=== PATIENT | male | born 1940 | race Caucasian/White ===

== ENCOUNTER 2023-10-02 15:18 | Inpatient (IN) | payer OTHER ==
[~2023-10-02] VITALS: Ht 177.8 cm; Wt 55.8 kg
[~2023-10-02 15:18] MED LIST: AMBIEN; RESPIRADOL
[2023-10-02 15:29] VITALS: BP_SYST 136; PULSE 71; RESP 18; TEMP 97.7; O2SAT 98
[2023-10-02 17:00] LABS: BASOPHILS % (AUTO) 0.4 % (0.0-2.0); EOSINOPHILS # (AUTO) 0.1 K/uL (0.0-0.4); EOSINOPHILS % (AUTO) 1.1 % (0.0-4.0); HEMATOCRIT 37.3 % (36-54); HEMOGLOBIN 12.5 g/dL (14.0-18.0); LYMPHOCYTES # (AUTO) 1.5 K/uL (1.0-5.5); LYMPHOCYTES % (AUTO) 19.9 % (20.5-51.5); MEAN CORPUSCULAR HEMOGLOBIN 30 pg (27-31); MEAN CORPUSCULAR HGB CONC 34 % (32-36); MEAN CORPUSCULAR VOLUME 88 fL (79.0-98.0); MONOCYTES # (AUTO) 0.7 K/uL (0.0-1.0); NEUTROPHILS # (AUTO) 5.4 K/uL (1.8-7.7); NEUTROPHILS % (AUTO) 69.6 % (40.0-70.0); PLATELET COUNT (AUTO) 292 K/uL (130-430); RED BLOOD CELL COUNT(AUTO) 4.23 MIL/uL (4.2-6.2); WHITE BLOOD COUNT (AUTO) 7.8 K/uL (4.8-10.8)
[2023-10-02 17:29] LABS: ANION GAP 9 (5-15); CALCIUM 8.9 mg/dL (8.4-11.0); CARBON DIOXIDE 28 mmol/L (23-29); CHLORIDE 105 mmol/L (98-107); CREATININE 1.11 mg/dL (0.55-1.30); GLUCOSE 124 mg/dL (74-106); POTASSIUM 3.1 mmol/L (3.5-5.1); SODIUM SERUM 142 mmol/L (136-145); UREA NITROGEN, BLOOD 24 mg/dL (8-21)
[2023-10-02 17:41] LABS: ALANINE AMINOTRANSFERASE 27 U/L (12-78); ALBUMIN 3.6 g/dL (3.4-4.8); ASPARTATE AMINOTRANSFERASE 29 U/L (10-37); BILIRUBIN,DIRECT 0.2 mg/dL (0.0-0.3); CREATINE KINASE, TOTAL 315 U/L (39-308); FREE T4 (FREE THYROXINE) 0.9 ng/dL (0.6-1.6); THYROID STIMULATING HORMONE 2.83 uIu/mL (0.34-4.82); TOTAL BILIRUBIN 0.8 mg/dL (0.0-1.0); TOTAL PROTEIN, SERUM 7.4 g/dL (6.4-8.3)
[2023-10-02 17:52] LABS: PROTHROMBIN TIME 10.3 SECS (9.5-12.5)
[2023-10-02 18:07] LABS: CKMB RELATIVE INDEX 2.2 (0.0-2.9)
[2023-10-02 18:08] LABS: BILIRUBIN,URINE NEGATIVE (NEGATIVE); CLARITY/URINE CLEAR (CLEAR); COLOR,URINE YELLOW (YELLOW); GLUCOSE,URINE NEGATIVE (NEGATIVE); KETONES,URINE 1+ (NEGATIVE); LEUKOCYTE ESTERASE ,URINE NEGATIVE (NEGATIVE); NITRITE, URINE NEGATIVE (NEGATIVE); PROTEIN URINE TRACE (NEGATIVE)
[2023-10-02 18:14] LABS: BLOOD, URINE TRACE (NEGATIVE)
[2023-10-02 18:21] LABS: BACTERIA,URINE FEW /HPF (None Seen); FINE GRANULAR CASTS,URINE 0-10 /LPF (None Seen); MUCUS,URINE 2+ /LPF (None Seen); RBC,URINE 0-3 /HPF (0-3); WBC,URINE 0-3 /HPF (0-3)
[2023-10-02] MEDS ORDERED: BENA-6 PO (18:37)
[2023-10-02] MEDS ORDERED: SIMV-43 PO (18:37)
[2023-10-02] MEDS ORDERED: DONE5TAB33 PO (18:37)
[2023-10-02] MEDS ORDERED: ACETAMINOPHEN 325 MG TABLET PO PRN ×2 (19:15→19:30)
[2023-10-02] MEDS ORDERED: MORPHINE 2 MG/ML INJ. SYRINGE IVP PRN (19:15)
[2023-10-02] MEDS ORDERED: ONDANSETRON HCL 4 MG/2 ML VIAL IVP PRN (19:15)
[2023-10-02] MEDS ORDERED: HYDROcodone/ACETAMIN 5-325 MG TAB (NORCO/ VICODIN) PO PRN (19:15)
[2023-10-02] MEDS ORDERED: HYDROcodone/ACETAMIN 10-325 MG TAB PO PRN (19:15)
[2023-10-02] MEDS: NACL 0.9% 1,000 ML IV SCH (19:30)
[2023-10-02] MEDS ORDERED: BENAZEPRIL HCL 20 MG TABLET (LOTENSIN) PO SCH (19:30)
[2023-10-02] MEDS: POTASSIUM CHLORIDE 40 MEQ, LIDOCAINE JECT 2% PF 100 MG 50 MG in NS 250 ML IV ONE (21:16)
[2023-10-02] MEDS: lisinopriL 20 MG TABLET PO ONE (21:18)
[2023-10-02] MEDS: SIMVASTATIN 20 MG TABLET PO ONE (21:18)
[2023-10-02] MEDS: DONEPEZIL HCL 5 MG TABLET (ARICEPT) PO ONE (21:19)
[2023-10-03] MEDS ORDERED: MORPHINE 2 MG/ML INJ. SYRINGE ONE (00:41)
[2023-10-03 04:23] LABS: BASOPHILS % (AUTO) 0.2 % (0.0-2.0); EOSINOPHILS # (AUTO) 0.1 K/uL (0.0-0.4); EOSINOPHILS % (AUTO) 0.5 % (0.0-4.0); HEMATOCRIT 34.7 % (36-54); HEMOGLOBIN 11.7 g/dL (14.0-18.0); LYMPHOCYTES # (AUTO) 1.3 K/uL (1.0-5.5); LYMPHOCYTES % (AUTO) 12.5 % (20.5-51.5); MEAN CORPUSCULAR HEMOGLOBIN 30 pg (27-31); MEAN CORPUSCULAR HGB CONC 34 % (32-36); MEAN CORPUSCULAR VOLUME 89 fL (79.0-98.0); MONOCYTES # (AUTO) 0.8 K/uL (0.0-1.0); NEUTROPHILS # (AUTO) 7.9 K/uL (1.8-7.7); NEUTROPHILS % (AUTO) 78.8 % (40.0-70.0); PLATELET COUNT (AUTO) 272 K/uL (130-430); RED BLOOD CELL COUNT(AUTO) 3.91 MIL/uL (4.2-6.2); RED CELL DISTRIBUTION WIDTH 14.1 % (9.0-15.0); WHITE BLOOD COUNT (AUTO) 10.1 K/uL (4.8-10.8)
[2023-10-03 04:30] LABS: ALANINE AMINOTRANSFERASE 25 U/L (12-78); ALBUMIN 3.3 g/dL (3.4-4.8); ANION GAP 8 (5-15); ASPARTATE AMINOTRANSFERASE 26 U/L (10-37); CALCIUM 8.4 mg/dL (8.4-11.0); CARBON DIOXIDE 27 mmol/L (23-29); CHLORIDE 109 mmol/L (98-107); CREATININE 1.06 mg/dL (0.55-1.30); GLUCOSE 123 mg/dL (74-106); SODIUM SERUM 144 mmol/L (136-145); TOTAL BILIRUBIN 0.6 mg/dL (0.0-1.0); TOTAL PROTEIN, SERUM 6.7 g/dL (6.4-8.3); UREA NITROGEN, BLOOD 23 mg/dL (8-21)
[2023-10-03] MEDS ORDERED: POTASSIUM CHLORIDE 20 MEQ TABLET.ER ONE (09:18)
[2023-10-03] MEDS: POTASSIUM CHLORIDE 20 MEQ TABLET.ER PO ONE (09:18)
[2023-10-03] MEDS: ENOXAPARIN SODIUM 30 MG/0.3 ML SYRINGE SUBCUT SCH (09:19)
[2023-10-03] MEDS: lisinopriL 20 MG TABLET PO SCH (09:21)
[2023-10-03] MEDS: DONEPEZIL HCL 5 MG TABLET (ARICEPT) PO SCH (09:22)
[2023-10-03] MEDS ORDERED: HALOPERIDOL 1 MG TABLET (HALDOL) PO PRN (12:45)
[2023-10-03] MEDS: DOCUSATE SODIUM 100 MG CAPSULE PO ONE (12:59)
[2023-10-03] MEDS ORDERED: DOCUSATE SODIUM 100 MG CAPSULE PO ONE (13:03)
[2023-10-03 13:38] VITALS: BP_SYST 145; PULSE 75; RESP 16; TEMP 97.7; O2SAT 99
[2023-10-03] MEDS: QUEtiapine FUMARATE 25 MG TABLET PO ONE (15:21)
[2023-10-03 20:00] VITALS: BP_SYST 150; PULSE 84; RESP 18; TEMP 98.5; O2SAT 100
[2023-10-03] MEDS: SIMVASTATIN 20 MG TABLET PO SCH (21:41)
[2023-10-03] MEDS: QUEtiapine FUMARATE 25 MG TABLET PO SCH (21:41)
[2023-10-04 00:08] VITALS: BP_SYST 139; PULSE 76; RESP 18; TEMP 97.1; O2SAT 99
[2023-10-04 06:38] LABS: BASOPHILS % (AUTO) 0.4 % (0.0-2.0); EOSINOPHILS # (AUTO) 0.3 K/uL (0.0-0.4); HEMATOCRIT 33.7 % (36-54); HEMOGLOBIN 11.3 g/dL (14.0-18.0); LYMPHOCYTES # (AUTO) 1.8 K/uL (1.0-5.5); LYMPHOCYTES % (AUTO) 24.7 % (20.5-51.5); MEAN CORPUSCULAR HEMOGLOBIN 30 pg (27-31); MEAN CORPUSCULAR HGB CONC 34 % (32-36); MEAN CORPUSCULAR VOLUME 89 fL (79.0-98.0); MONOCYTES # (AUTO) 0.6 K/uL (0.0-1.0); MONOCYTES % (AUTO) 8.6 % (1.7-9.3); NEUTROPHILS # (AUTO) 4.7 K/uL (1.8-7.7); NEUTROPHILS % (AUTO) 62.3 % (40.0-70.0); PLATELET COUNT (AUTO) 242 K/uL (130-430); RED CELL DISTRIBUTION WIDTH 14.1 % (9.0-15.0)
[2023-10-04 07:31] LABS: ALANINE AMINOTRANSFERASE 27 U/L (12-78); ANION GAP 7 (5-15); ASPARTATE AMINOTRANSFERASE 22 U/L (10-37); CALCIUM 8.5 mg/dL (8.4-11.0); CARBON DIOXIDE 26 mmol/L (23-29); CHLORIDE 107 mmol/L (98-107); CREATININE 1.01 mg/dL (0.55-1.30); GLUCOSE 106 mg/dL (74-106); POTASSIUM 3.3 mmol/L (3.5-5.1); SODIUM SERUM 140 mmol/L (136-145); TOTAL BILIRUBIN 0.6 mg/dL (0.0-1.0); TOTAL PROTEIN, SERUM 6.2 g/dL (6.4-8.3); UREA NITROGEN, BLOOD 21 mg/dL (8-21)
[2023-10-04 07:46] LABS: WHITE BLOOD COUNT (AUTO) 7.5 K/uL (4.8-10.8)
[2023-10-04 08:30] VITALS: BP_SYST 152; PULSE 94; RESP 18; TEMP 97.3
[2023-10-04] MEDS: DOCUSATE SODIUM 100 MG CAPSULE PO SCH (08:42)
[2023-10-04 12:36] VITALS: BP_SYST 129; PULSE 98; RESP 18; TEMP 98.1; O2SAT 99
[2023-10-04 16:00] VITALS: BP_SYST 122; PULSE 88; RESP 18; TEMP 98.4; O2SAT 98
[2023-10-04 17:22] VITALS: BP_SYST 127; PULSE 86; RESP 18; TEMP 97.8; O2SAT 99
[2023-10-04 20:00] VITALS: BP_SYST 157; PULSE 70; RESP 18; TEMP 97.4; O2SAT 99
[2023-10-05 00:33] VITALS: BP_SYST 132; PULSE 65; RESP 18; TEMP 97.4; O2SAT 98
[2023-10-05 06:09] LABS: BASOPHILS % (AUTO) 0.4 % (0.0-2.0); EOSINOPHILS # (AUTO) 0.3 K/uL (0.0-0.4); EOSINOPHILS % (AUTO) 3.9 % (0.0-4.0); HEMATOCRIT 35.2 % (36-54); LYMPHOCYTES # (AUTO) 1.9 K/uL (1.0-5.5); LYMPHOCYTES % (AUTO) 23.6 % (20.5-51.5); MEAN CORPUSCULAR HEMOGLOBIN 30 pg (27-31); MEAN CORPUSCULAR HGB CONC 34 % (32-36); MEAN CORPUSCULAR VOLUME 88 fL (79.0-98.0); MONOCYTES # (AUTO) 0.7 K/uL (0.0-1.0); MONOCYTES % (AUTO) 8.7 % (1.7-9.3); NEUTROPHILS # (AUTO) 5.1 K/uL (1.8-7.7); NEUTROPHILS % (AUTO) 63.4 % (40.0-70.0); PLATELET COUNT (AUTO) 268 K/uL (130-430); RED BLOOD CELL COUNT(AUTO) 3.98 MIL/uL (4.2-6.2)
[2023-10-05 06:44] LABS: ALANINE AMINOTRANSFERASE 21 U/L (12-78); ALBUMIN 3.1 g/dL (3.4-4.8); ANION GAP 5 (5-15); ASPARTATE AMINOTRANSFERASE 21 U/L (10-37); CALCIUM 8.9 mg/dL (8.4-11.0); CARBON DIOXIDE 31 mmol/L (23-29); CHLORIDE 104 mmol/L (98-107); CREATININE 1.07 mg/dL (0.55-1.30); GLUCOSE 117 mg/dL (74-106); POTASSIUM 3.3 mmol/L (3.5-5.1); SODIUM SERUM 140 mmol/L (136-145); TOTAL BILIRUBIN 0.5 mg/dL (0.0-1.0); TOTAL PROTEIN, SERUM 6.7 g/dL (6.4-8.3); UREA NITROGEN, BLOOD 19 mg/dL (8-21)
[2023-10-05 08:00] VITALS: BP_SYST 122; PULSE 72; RESP 20; TEMP 97.5; O2SAT 96
[2023-10-05 12:30] VITALS: BP_SYST 130; PULSE 76; RESP 18; TEMP 98; O2SAT 99
[2023-10-05 16:45] VITALS: BP_SYST 130; PULSE 69; RESP 18; TEMP 97.6; O2SAT 100
[2023-10-05 19:00] VITALS: O2SAT 95
[2023-10-05 20:00] VITALS: BP_SYST 134; PULSE 76; RESP 18; TEMP 98.7; O2SAT 96
[2023-10-05] MEDS: QUEtiapine FUMARATE 25 MG TABLET PO SCH (21:17)
[2023-10-05] MEDS: HALOPERIDOL LACTATE 5 MG/ML VIAL IM PRN (22:23)
[2023-10-06] VITALS: BP_SYST 127; PULSE 78; RESP 18; TEMP 97.8; O2SAT 100
[2023-10-06 06:02] LABS: BASOPHILS % (AUTO) 0.3 % (0.0-2.0); EOSINOPHILS # (AUTO) 0.1 K/uL (0.0-0.4); EOSINOPHILS % (AUTO) 1.6 % (0.0-4.0); HEMATOCRIT 34.9 % (36-54); HEMOGLOBIN 11.9 g/dL (14.0-18.0); LYMPHOCYTES # (AUTO) 1.7 K/uL (1.0-5.5); LYMPHOCYTES % (AUTO) 19.3 % (20.5-51.5); MEAN CORPUSCULAR HEMOGLOBIN 30 pg (27-31); MEAN CORPUSCULAR HGB CONC 34 % (32-36); MEAN CORPUSCULAR VOLUME 88 fL (79.0-98.0); MONOCYTES # (AUTO) 0.7 K/uL (0.0-1.0); MONOCYTES % (AUTO) 8.5 % (1.7-9.3); NEUTROPHILS # (AUTO) 6.1 K/uL (1.8-7.7); NEUTROPHILS % (AUTO) 70.3 % (40.0-70.0); PLATELET COUNT (AUTO) 279 K/uL (130-430); RED BLOOD CELL COUNT(AUTO) 3.96 MIL/uL (4.2-6.2); RED CELL DISTRIBUTION WIDTH 13.9 % (9.0-15.0); WHITE BLOOD COUNT (AUTO) 8.7 K/uL (4.8-10.8)
[2023-10-06 06:34] LABS: ALANINE AMINOTRANSFERASE 29 U/L (12-78); ALBUMIN 3.3 g/dL (3.4-4.8); ANION GAP 2 (5-15); ASPARTATE AMINOTRANSFERASE 36 U/L (10-37); CALCIUM 8.8 mg/dL (8.4-11.0); CARBON DIOXIDE 29 mmol/L (23-29); CHLORIDE 104 mmol/L (98-107); CREATININE 1.12 mg/dL (0.55-1.30); GLUCOSE 118 mg/dL (74-106); SODIUM SERUM 135 mmol/L (136-145); TOTAL BILIRUBIN 0.5 mg/dL (0.0-1.0); UREA NITROGEN, BLOOD 24 mg/dL (8-21)
[2023-10-06 08:00] VITALS: BP_SYST 126; PULSE 77; RESP 18; TEMP 97.6; O2SAT 95; O2SAT 96
[2023-10-06 12:00] VITALS: BP_SYST 127; PULSE 77; RESP 18; TEMP 97.2; O2SAT 96
[2023-10-06] MEDS: POTASSIUM CHLORIDE 20 MEQ TABLET.ER PO ONE (14:17)
[2023-10-06 16:00] VITALS: BP_SYST 129; PULSE 76; RESP 18; TEMP 97.6; O2SAT 94
[2023-10-06 19:00] VITALS: BP_SYST 128; PULSE 86; RESP 18; TEMP 97.7; O2SAT 99
[2023-10-06 20:00] VITALS: BP_SYST 126; PULSE 86; RESP 18; TEMP 97.7; O2SAT 99
[2023-10-07] VITALS (7 sets, daily range): BP systolic 107–145; PULSE 77–89; RESP 18; TEMP 97.5–98.9; O2SAT 95–99
[2023-10-07 05:40] LABS: BASOPHILS % (AUTO) 0.4 % (0.0-2.0); EOSINOPHILS # (AUTO) 0.3 K/uL (0.0-0.4); EOSINOPHILS % (AUTO) 3.4 % (0.0-4.0); HEMATOCRIT 34.4 % (36-54); LYMPHOCYTES % (AUTO) 24.1 % (20.5-51.5); MEAN CORPUSCULAR HEMOGLOBIN 31 pg (27-31); MEAN CORPUSCULAR HGB CONC 35 % (32-36); MEAN CORPUSCULAR VOLUME 89 fL (79.0-98.0); MONOCYTES # (AUTO) 0.7 K/uL (0.0-1.0); MONOCYTES % (AUTO) 8.9 % (1.7-9.3); NEUTROPHILS # (AUTO) 5.3 K/uL (1.8-7.7); NEUTROPHILS % (AUTO) 63.2 % (40.0-70.0); PLATELET COUNT (AUTO) 268 K/uL (130-430); RED BLOOD CELL COUNT(AUTO) 3.89 MIL/uL (4.2-6.2); RED CELL DISTRIBUTION WIDTH 14.1 % (9.0-15.0); WHITE BLOOD COUNT (AUTO) 8.3 K/uL (4.8-10.8)
[2023-10-07 05:54] LABS: ALANINE AMINOTRANSFERASE 42 U/L (12-78); ALBUMIN 3.1 g/dL (3.4-4.8); ANION GAP 5 (5-15); ASPARTATE AMINOTRANSFERASE 44 U/L (10-37); CARBON DIOXIDE 30 mmol/L (23-29); CHLORIDE 104 mmol/L (98-107); CREATININE 1.15 mg/dL (0.55-1.30); GLUCOSE 112 mg/dL (74-106); POTASSIUM 3.8 mmol/L (3.5-5.1); SODIUM SERUM 139 mmol/L (136-145); TOTAL BILIRUBIN 0.4 mg/dL (0.0-1.0); TOTAL PROTEIN, SERUM 6.8 g/dL (6.4-8.3); UREA NITROGEN, BLOOD 38 mg/dL (8-21)
[2023-10-07] MEDS ORDERED: SER25 PO (10:51)
== END 2023-10-07 17:05 | disposition home or self-care (01) | DRG 641 ==
LOC: SED 15:18 → SMU 19:14 → INTOOBSV 19:14 → SMU 21:25 → OBSVTOIN 10-04 22:05
PROVIDERS: ADMIT Family Medicine; ATTEND Family Medicine
DX: E87.6 Hypokalemia (principal); Z68.1 Body mass index [BMI] 19.9 or less, adult; E78.5 Hyperlipidemia, unspecified; I10 Essential (primary) hypertension; Z79.899 Other long term (current) drug therapy; R45.1 Restlessness and agitation; F03.90 Unspecified dementia, unspecified severity, without behavioral disturbance, psychotic disturbance, mood disturbance, and anxiety; R63.6 Underweight
CPT/HCPCS: 36415; 70450-TC; 71045; 80048; 80053; 80076; 81000; 81001; 81015; 82550; 82553; 83605; 84439; 84443; 84484; 85025; 85610; 85730; 93005; 96365; 97116-GP; 97530-GP; 99285; G0378; J1630; J1650; J2270; J3480; J7050